=== PATIENT | female | born 1980 | race Caucasian/White ===

== ENCOUNTER → 2022-07-05 15:08 | Outpatient (CLI) | payer OTHER, SELFPAY ==
--- NOTE | ~2022-07-05 | MR_ITS ---
EXAMINATION: MR knee RT wo con DATE: 07/05/2022 15:59 INDICATION: Right knee pain TECHNIQUE: Magnetic resonance imaging (MRI) of the right knee was performed without intravenous contr ast. Sequences included coronal PD-weighted FSE, coronal PD-weighted FS FSE, sagittal T2-weighted FS E, sagittal PD-weighted FS FSE and axial PD weighted fat saturated FSE. COMPARISON: None. FINDINGS: Medial compartment: Medial meniscus is normal. Partial-thickness chondral ulceration along the anterior weightbearing med ial femoral condyle. Additional partial thickness cartilage loss but with smooth chondral surface at the central weightbearing medial femoral condyle. Lateral compartment: Lateral meniscus is normal. Articular cartilage is normal. Patellofemoral compartment: Partial-thickness chondral ulceration and deep fissuring at the patellar apical ridge where there is minimal underlying subarticular edema-like signal change. Additional deep fissuring without degenerat guilherme subchondral changes along the inferomedial aspect of the lateral patellar facet. Additional parti al thickness cartilage loss with smooth chondral surface along the lateral side of the medial facet. Partial-thickness chondral fissuring at the inferior aspect of the medial trochlea. Ligaments and tendons: Anterior and posterior cruciate ligaments are normal. Prominent thickening and increased signal with mild surrounding edema of the proximal 3 cm of the medial collateral ligament consistent with moderat e grade sprain/partial tear. The fibular collateral ligament complex is normal. The extensor mechanis m is normal. The visualized medial and lateral hamstring tendons as well as the iliotibial band are n ormal. Fluid: Physiologic amount of fluid in the joint space. No loose osteochondral bodies identified. Osseous/other: Bone alignment is normal. There are small bone islands at the posterior aspect of the medial and late ral femoral condyles. No fracture or pathologic marrow replacing process. IMPRESSION: 1. 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 2. Moderate grade sprain/partial tear of the proximal medial collateral ligament. Reviewed, dictated and finalized at location L. IMPRESSION: 1. Mild osteoarthritis with moderate to high-grade osteoarthritis in the patell ofemoral compartment and moderate grade chondromalacia in the medial compartmen t. 2. Moderate grade sprain/partial tear of the proximal medial collateral ligamen t.
== END ==
PROVIDERS: PCP Internal Medicine; Visit Provider Orthopaedic Surgery
DX: M17.11 Unilateral primary osteoarthritis, right knee (principal); S83.411A Sprain of medial collateral ligament of right knee, initial encounter; X58.XXXA Exposure to other specified factors, initial encounter
CPT/HCPCS: 73721